=== PATIENT | female | born 1940 | race Caucasian/White ===

== ENCOUNTER 2016-07-06 01:45 | Emergency (ER) | payer MEDICARE, BC ==
[2016-07-06] MEDS ORDERED: SODIUM CHLORIDE 0.9% 1,000 ML IV STA (02:03)
[2016-07-06] MEDS ORDERED: SODIUM CHLORIDE 0.9% 500 ML IV STA (02:03)
[2016-07-06 02:04] VITALS: TEMP 98
[2016-07-06] MEDS ORDERED: KETOROLAC 30 MG/ML 1 ML VIAL IVP STA (02:04)
--- NOTE | 2016-07-06 02:10 | ED ---
Lower Extremity Injury HPI - General Chief Complaint: Extremity Injury, Lower Stated Complaint: L KNEE PAIN Time Seen by Provider: 07/06/16 01:45 Source: patient, family, EMS, RN notes reviewed Mode of arrival: EMS Limitations: no limitations - History of Present Illness Initial Comments: This is a 76-year-old female with a history of Alzheimer's disease who is brought in because of severe left knee pain. She has been evaluated and was told that she needs a knee replacement a left was told it was [id number]. She is in the process again cleared for surgery. She has had however some urinary frequency also has had some nausea decrease oral intake. She is taking pain medication but apparently did not help tonight. She is scheduled to see her physician again for the remainder the preop evaluation. His been no reports of fevers chills or sweats cough or phlegm production. Of note she was noted on her last exam however to have a low heart rate and they were in the process getting the etiology worked out. The patient is on beta blockers. MD Complaint: other - Related Data Previous Rx's Medication Instructions Recorded Ibuprofen [Motrin] 600 mg PO Q6HR PRN #20 tab 07/06/16 Allergies Allergy/AdvReac Type Severity Reaction Status Date / Time No Known Allergies Allergy Verified 09/07/14 20:05 Review of Systems ROS Statement: Those systems with pertinent positive or pertinent negative responses have been documented in the HPI. ROS Other: All systems not noted in ROS Statement are negative. Past Medical History Past Medical History: Hypertension Additional Past Medical History / Comment(s): memory problems History of Any Multi-Drug Resistant Organisms: None Reported Past Surgical History: Cholecystectomy, Hysterectomy Additional Past Surgical History / Comment(s): lumpectomy, Left knee surgery Past Psychological History: No Psychological Hx Reported Smoking Status: Never smoker Past Alcohol Use History: None Reported Past Drug Use History: None Reported General Exam - General Exam Comments Initial Comments: This is a well-developed well-nourished awake alert female Limitations: no limitations General appearance: alert, in no apparent distress Head exam: Present: atraumatic, normocephalic, normal inspection Eye exam: Present: normal appearance, PERRL, EOMI. Absent: scleral icterus, conjunctival injection, periorbital swelling ENT exam: Present: mucous membranes dry Neck exam: Present: normal inspection. Absent: tenderness, meningismus, lymphadenopathy Respiratory exam: Present: normal lung sounds bilaterally. Absent: respiratory distress, wheezes, rales, rhonchi, stridor Cardiovascular Exam: Present: normal rhythm, bradycardia, normal heart sounds. Absent: systolic murmur, diastolic murmur, rubs, gallop, clicks GI/Abdominal exam: Present: soft, normal bowel sounds. Absent: distended, tenderness, guarding, rebound, rigid Extremities exam: Present: normal inspection, tenderness, normal capillary refill. Absent: full ROM (Tenderness over the left. Palpation no definite step -off or crepitation however.), pedal edema, joint swelling, calf tenderness Back exam: Present: normal inspection Neurological exam: Present: alert, oriented X3, CN II-XII intact Psychiatric exam: Present: normal affect, normal mood Skin exam: Present: warm, dry, intact, normal color. Absent: rash Course Vital Signs 07/06/16 07/06/16 02:00 03:05 Temperature 98.0 F Pulse Rate 44 L 96 Respiratory 18 20 Rate Blood Pressure 152/73 126/67 O2 Sat by Pulse 96 98 Oximetry Medical Decision Making - Medical Decision Making Patient is feeling much improved she'll be discharged to did discuss findings the patient family. She will follow-up with Dr. Hutchinson return when necessary she will be placed on a short course of nonsteroidal anti-inflammatories was warned of possible consequences and side effects. - Lab Data Result diagrams: 07/06/16 02:39 07/06/16 02:39 Lab Results 07/05/16 07/06/16 07/06/16 Range/Units 23:50 02:39 02:39 WBC 4.8 (3.8-10.6) k/uL RBC 4.34 (3.80-5.40) m/uL Hgb 13.1 (11.4-16.0) gm/dL Hct 38.7 (34.0-46.0) % MCV 89.2 (80.0-100.0) fL MCH 30.2 (25.0-35.0) pg MCHC 33.9 (31.0-37.0) g/dL RDW 12.9 (11.5-15.5) % Plt Count 207 (150-450) k/uL Neutrophils % 52 % Lymphocytes % 32 % Monocytes % 9 % Eosinophils % 4 % Basophils % 1 % Neutrophils # 2.5 (1.3-7.7) k/uL Lymphocytes # 1.5 (1.0-4.8) k/uL Monocytes # 0.4 (0-1.0) k/uL Eosinophils # 0.2 (0-0.7) k/uL Basophils # 0.1 (0-0.2) k/uL Sodium 139 (137-145) mmol/L Potassium 3.7 (3.5-5.1) mmol/L Chloride 104 (98-107) mmol/L Carbon Dioxide 24 (22-30) mmol/L Anion Gap 11 mmol/L BUN 13 (7-17) mg/dL Creatinine 1.50 H (0.52-1.04) mg/dL Est GFR (MDRD) Af Amer 41 (>60 ml/min/1.73 sqM) Est GFR (MDRD) Non-Af 34 (>60 ml/min/1.73 sqM) Glucose 91 (74-99) mg/dL Calcium 10.0 (8.4-10.2) mg/dL Magnesium 1.7 (1.6-2.3) mg/dL Total Bilirubin 0.8 (0.2-1.3) mg/dL AST 25 (14-36) U/L ALT 32 (9-52) U/L Alkaline Phosphatase 46 (38-126) U/L Total Creatine Kinase (30-135) U/L CK-MB (CK-2) (0.0-2.4) ng/mL CK-MB (CK-2) Rel Index Troponin I (0.000-0.034) ng/mL Total Protein 6.7 (6.3-8.2) g/dL Albumin 4.2 (3.5-5.0) g/dL TSH 4.580 (0.465-4.680) mIU/L Urine Color Light Yellow Urine Appearance Clear (Clear) Urine pH 7.0 (5.0-8.0) Ur Specific [place] 1.002 (1.001-1.035) Urine Protein Negative (Negative) Urine Glucose (UA) Negative (Negative) Urine Ketones Negative (Negative) Urine Blood Negative (Negative) Urine Nitrite Negative (Negative) Urine Bilirubin Negative (Negative) Urine Urobilinogen <2.0 (<2.0) mg/dL Ur Leukocyte Esterase Trace H (Negative) Urine RBC <1 (0-5) /hpf Urine WBC 2 (0-5) /hpf Ur Squamous Epith Cells <1 (0-4) /hpf Urine Bacteria Rare H (None) /hpf Urine Mucus Rare H (None) /hpf 07/06/16 Range/Units 02:39 WBC (3.8-10.6) k/uL RBC (3.80-5.40) m/uL Hgb (11.4-16.0) gm/dL Hct (34.0-46.0) % MCV (80.0-100.0) fL MCH (25.0-35.0) pg MCHC (31.0-37.0) g/dL RDW (11.5-15.5) % Plt Count (150-450) k/uL Neutrophils % % Lymphocytes % % Monocytes % % Eosinophils % % Basophils % % Neutrophils # (1.3-7.7) k/uL Lymphocytes # (1.0-4.8) k/uL Monocytes # (0-1.0) k/uL Eosinophils # (0-0.7) k/uL Basophils # (0-0.2) k/uL Sodium (137-145) mmol/L Potassium (3.5-5.1) mmol/L Chloride (98-107) mmol/L Carbon Dioxide (22-30) mmol/L Anion Gap mmol/L BUN (7-17) mg/dL Creatinine (0.52-1.04) mg/dL Est GFR (MDRD) Af Amer (>60 ml/min/1.73 sqM) Est GFR (MDRD) Non-Af (>60 ml/min/1.73 sqM) Glucose (74-99) mg/dL Calcium (8.4-10.2) mg/dL Magnesium (1.6-2.3) mg/dL Total Bilirubin (0.2-1.3) mg/dL AST (14-36) U/L ALT (9-52) U/L Alkaline Phosphatase (38-126) U/L Total Creatine Kinase 60 (30-135) U/L CK-MB (CK-2) 0.6 (0.0-2.4) ng/mL CK-MB (CK-2) Rel Index 1.0 Troponin I <0.012 (0.000-0.034) ng/mL Total Protein (6.3-8.2) g/dL Albumin (3.5-5.0) g/dL TSH (0.465-4.680) mIU/L Urine Color Urine Appearance (Clear) Urine pH (5.0-8.0) Ur Specific [place] (1.001-1.035) Urine Protein (Negative) Urine Glucose (UA) (Negative) Urine Ketones (Negative) Urine Blood (Negative) Urine Nitrite (Negative) Urine Bilirubin (Negative) Urine Urobilinogen (<2.0) mg/dL Ur Leukocyte Esterase (Negative) Urine RBC (0-5) /hpf Urine WBC (0-5) /hpf Ur Squamous Epith Cells (0-4) /hpf Urine Bacteria (None) /hpf Urine Mucus (None) /hpf - EKG Data -: EKG Interpreted by Me (Sinus bradycardia with a rate of [address] interval 192 QRS duration 80 QT/QT) EKG shows normal: sinus rhythm - Radiology Data Radiology results: report reviewed (I did review the x-rays and report no acute findings), image reviewed Disposition Clinical Impression: Left knee pain Disposition: HOME SELF-CARE Condition: Good Instructions: Knee Pain (ED) Prescriptions: Ibuprofen [Motrin] 600 mg PO Q6HR PRN #20 tab PRN Reason: Pain
[2016-07-06 02:54] LABS: Basophils # (A) 0.1 k/uL (0-0.2); Basophils % (A) 1 %; CH 30.5; CHCM 34.3; Eosinophils # (A) 0.2 k/uL (0-0.7); Eosinophils % (A) 4 %; HCT 38.7 % (34.0-46.0); HDW 2.34; HGB 13.1 gm/dL (11.4-16.0); Luc # (Auto) 0.12; Luc % (Auto) 3; Lymphocytes # (A) 1.5 k/uL (1.0-4.8); Lymphocytes % (A) 32 %; MCH 30.2 pg (25.0-35.0); MCHC 33.9 g/dL (31.0-37.0); MCV 89.2 fL (80.0-100.0); Mean Platelet Volume 6.6; Monocytes # (A) 0.4 k/uL (0-1.0); Monocytes % (A) 9 %; Neutrophils # (A) 2.5 k/uL (1.3-7.7); Neutrophils % (A) 52 %; RBC 4.34 m/uL (3.80-5.40); RDW 12.9 % (11.5-15.5); WBC 4.8 k/uL (3.8-10.6); WBC (Perox) 5.17
[2016-07-06 02:58] LABS: Appearance,Urine Clear (Clear); Bacteria,Urine Rare /hpf; Bilirubin,Urine Negative (Negative); Glucose,Urine (UA) Negative (Negative); Ketones,Urine Negative (Negative); Leukocyte Esterase,Urine Trace (Negative); Mucus,Urine Rare /hpf; Nitrite,Urine Negative (Negative); Particle Count 675; Protein,Urine Negative (Negative); RBC,Urine <1 /hpf (0-5); Specific Gravity,Urine 1.002 (1.001-1.035); Squamous Epithelial Cell,Urine <1 /hpf (0-4); UA Billing (MACRO vs. MICRO) MICRO; Urobilinogen,Urine <2.0 mg/dL (<2.0); WBC,Urine 2 /hpf (0-5)
[2016-07-06 03:00] LABS: Magnesium 1.7 mg/dL (1.6-2.3); Potassium 3.7 mmol/L (3.5-5.1); Total Bilirubin 0.8 mg/dL (0.2-1.3); Total Protein 6.7 g/dL (6.3-8.2)
[2016-07-06 03:13] LABS: Creatine Kinase 60 U/L (30-135)
[2016-07-06 03:26] LABS: Creatine Kinase MB 0.6 ng/mL (0.0-2.4); Troponin I <0.012 ng/mL (0.000-0.034)
--- NOTE | 2016-07-06 03:45 | XR ---
EXAM: XR Chest, 2 Views. CLINICAL HISTORY: Reason: cough TECHNIQUE: Frontal and lateral views of the chest. COMPARISON: No relevant prior studies available. FINDINGS: Lungs: There is slight increased left infrahilar/retrocardiac opacity. This demonstrates slight linear opacity and may represent atelectasis or chronic bronchitis. Follow-up recommended to exclude developing infiltrate. No effusion. Pleural space: Unremarkable. No pneumothorax. Heart: Cardiovascular silhouette is within normal limits. Mediastinum: Unremarkable. Bones/joints: Unremarkable. Vasculature: Mildly tortuous thoracic aorta. IMPRESSION: 1. Possible atelectasis/bronchitis in the left lower lobe. Follow-up recommended to exclude early infiltrate. 2. No effusion.
[2016-07-06 03:54] VITALS: BP 160/87; PULSE 44; RESP 18
== END 2016-07-06 03:53 | disposition home or self-care (01) ==
LOC: EC 01:45
DX: M25.562 Pain in left knee (principal); R35.0 Frequency of micturition; R11.0 Nausea; I10 Essential (primary) hypertension; Z79.899 Other long term (current) drug therapy
CPT/HCPCS: 99284; 96374; 36415; 93005; 80053; 84443; 82550; 82553; 83735; 84484; 85025; 81001; 71020; J1885

== ENCOUNTER 2016-07-09 07:17 | Observation (INO) | payer MEDICARE, BC ==
[2016-07-09] MEDS ORDERED: SODIUM CHLORIDE 0.9% 1,000 ML IV STA (07:32)
[2016-07-09] MEDS ORDERED: SODIUM CHLORIDE 0.9% 2,000 ML IV STA (07:32)
[2016-07-09] MEDS ORDERED: FAMOTIDINE 20 MG/2 ML VIAL IV STA (07:34)
--- NOTE | 2016-07-09 07:40 | ED ---
Headache HPI - General Chief Complaint: Headache Stated Complaint: headache Time Seen by Provider: 07/09/16 07:28 Source: patient, family, RN notes reviewed, old records reviewed Mode of arrival: wheelchair Limitations: altered mental status, physical limitation - History of Present Illness Initial Comments: This is a 76-year-old female who is brought in for evaluation of a severe headache and vomiting. She was seen here on the of this month by me because of knee pain she was at that time given nonsteroidal anti- inflammatories which did seem to help the pain he was sent home but per family after she took a single Motrin 600 mg she started developing nausea and vomiting and it has persisted every 2-3 hours since 3 days ago. She now complains of feeling lightheaded dizzy weak and has a global headache that she describes as being sharp and severe. No focal weakness no blurry vision is reported no fevers chills sweats or cough. She does feel chilled at this time however. She was instructed by a pharmacist to take Benadryl for possible ALLERGIC reaction this did not help his symptoms. She's had no diarrhea no constipation to report. Due to the vomiting she's not been able to keep her medications down and has had decreased oral intake of food and fluid. Per family the emesis has been dark green no blood is reported no red or black material MD Complaint: headache, other - Related Data Home Medications Medication Instructions Recorded Confirmed Amitriptyline HCl [Elavil] 10 mg PO HS 07/09/16 07/09/16 Aspirin EC [Ecotrin Low Dose] 81 mg PO DAILY 07/09/16 07/09/16 Cholecalciferol [Vitamin D3] 1,000 unit PO DAILY 07/09/16 07/09/16 Donepezil HCl [Aricept ODT] 5 mg PO HS 07/09/16 07/09/16 Fenofibrate [Lofibra] 54 mg PO DAILY 07/09/16 07/09/16 HYDROcodone/APAP 5-325MG [[place] 1 tab PO Q8H PRN 07/09/16 07/09/16 5-325] Isosorbide Mononitrate ER [Imdur] 30 mg PO DAILY 07/09/16 07/09/16 Lidocaine 5% Oint [Xylocaine 5% 1 applic TOPICAL TID PRN 07/09/16 07/09/16 Oint] Naproxen Sodium [Aleve] 220 - 440 mg PO Q6H PRN 07/09/16 07/09/16 Nitroglycerin Sl Tabs [Nitrostat] 0.4 mg SUBLINGUAL Q5M PRN 07/09/16 07/09/16 Olmesartan/Hydrochlorothiazide 1 tab PO DAILY 07/09/16 07/09/16 [Olmesartan-Hctz 40-25 mg Tab] Simethicone [Gas-X] 125 mg PO Q8H PRN 07/09/16 07/09/16 traMADol HCL [Ultram] 50 mg PO DAILY PRN 07/09/16 07/09/16 Allergies Allergy/AdvReac Type Severity Reaction Status Date / Time No Known Allergies Allergy Verified 07/09/16 08:32 Review of Systems ROS Statement: Those systems with pertinent positive or pertinent negative responses have been documented in the HPI. ROS Other: All systems not noted in ROS Statement are negative. Past Medical History Past Medical History: Hypertension Additional Past Medical History / Comment(s): memory problems History of Any Multi-Drug Resistant Organisms: None Reported Past Surgical History: Cholecystectomy, Hysterectomy Additional Past Surgical History / Comment(s): lumpectomy, Left knee surgery Past Psychological History: No Psychological Hx Reported Smoking Status: Never smoker Past Alcohol Use History: None Reported Past Drug Use History: None Reported General Exam - General Exam Comments Initial Comments: This is a well-developed well-nourished awake alert oriented female she is very anxious Limitations: altered mental status, physical limitation General appearance: alert, anxious, in distress (Patient is tearful) Head exam: Present: atraumatic, normocephalic, normal inspection Eye exam: Present: normal appearance, PERRL, EOMI. Absent: scleral icterus, conjunctival injection, periorbital swelling ENT exam: Present: mucous membranes dry Neck exam: Present: normal inspection, full ROM. Absent: tenderness, meningismus, lymphadenopathy Respiratory exam: Present: normal lung sounds bilaterally. Absent: respiratory distress, wheezes, rales, rhonchi, stridor Cardiovascular Exam: Present: regular rate, normal rhythm, normal heart sounds. Absent: systolic murmur, diastolic murmur, rubs, gallop, clicks GI/Abdominal exam: Present: soft, tenderness (Epigastric tenderness palpation no guarding rebound masses or bruits), normal bowel sounds. Absent: bruit, pulsatile mass, hernia Rectal exam: Present: deferred Extremities exam: Present: normal inspection, full ROM, normal capillary refill. Absent: tenderness, pedal edema, joint swelling, calf tenderness Back exam: Present: normal inspection Neurological exam: Present: alert, oriented X3, CN II-XII intact Psychiatric exam: Present: normal affect, normal mood Skin exam: Present: warm, dry, intact, normal color. Absent: rash Course Vital Signs 07/09/16 07/09/16 07/09/16 07:20 07:56 08:42 Temperature 96.3 F L 99.1 F Pulse Rate 85 53 L 52 L Respiratory 20 18 18 Rate Blood Pressure 156/77 140/76 O2 Sat by Pulse 98 98 Oximetry 07/09/16 07/09/16 07/09/16 09:01 10:13 10:58 Temperature 98 F Pulse Rate 52 L 48 L 48 L Respiratory 18 18 18 Rate Blood Pressure 138/93 145/67 O2 Sat by Pulse 99 95 Oximetry Medical Decision Making - Medical Decision Making The patient states she is feeling somewhat better I did a long discussion with the patient later with her daughter. Patient does have a history of Alzheimer' s disease. She has been tearful she's not been eating or drinking very well for a recent period of time she did recently move to this area is not happy where she is staying right now she has voiced to her daughter that she wishes she would . After discussed with the family patient will be admitted for inpatient evaluation of bradycardia failure to thrive intractable nausea dehydration. I did discuss the case with the on-call physician. Cardiology and psychiatry will be consulted. - Lab Data Result diagrams: 07/09/16 07:42 07/09/16 07:42 Lab Results 07/09/16 07/09/16 07/09/16 Range/Units 07:42 07:42 07:42 WBC 5.4 (3.8-10.6) k/uL RBC 4.11 (3.80-5.40) m/uL Hgb 12.7 (11.4-16.0) gm/dL Hct 36.4 (34.0-46.0) % MCV 88.6 (80.0-100.0) fL MCH 31.0 (25.0-35.0) pg MCHC 35.0 (31.0-37.0) g/dL RDW 12.9 (11.5-15.5) % Plt Count 215 (150-450) k/uL Neutrophils % 67 % Lymphocytes % 20 % Monocytes % 7 % Eosinophils % 3 % Basophils % 1 % Neutrophils # 3.6 (1.3-7.7) k/uL Lymphocytes # 1.1 (1.0-4.8) k/uL Monocytes # 0.4 (0-1.0) k/uL Eosinophils # 0.2 (0-0.7) k/uL Basophils # 0.1 (0-0.2) k/uL Sodium 135 L (137-145) mmol/L Potassium 4.0 (3.5-5.1) mmol/L Chloride 100 (98-107) mmol/L Carbon Dioxide 25 (22-30) mmol/L Anion Gap 10 mmol/L BUN 16 (7-17) mg/dL Creatinine 1.59 H (0.52-1.04) mg/dL Est GFR (MDRD) Af Amer 38 (>60 ml/min/1.73 sqM) Est GFR (MDRD) Non-Af 31 (>60 ml/min/1.73 sqM) Glucose 107 H (74-99) mg/dL Plasma Lactic Acid Shar (0.7-2.0) mmol/L Calcium 10.0 (8.4-10.2) mg/dL Total Bilirubin 1.0 (0.2-1.3) mg/dL AST 32 (14-36) U/L ALT 35 (9-52) U/L Alkaline Phosphatase 44 (38-126) U/L Total Creatine Kinase 75 (30-135) U/L CK-MB (CK-2) 0.8 (0.0-2.4) ng/mL CK-MB (CK-2) Rel Index 1.1 Troponin I 0.016 (0.000-0.034) ng/mL Total Protein 7.0 (6.3-8.2) g/dL Albumin 4.3 (3.5-5.0) g/dL Amylase 62 (30-110) U/L Lipase 113 (23-300) U/L Urine Color Urine Appearance (Clear) Urine pH (5.0-8.0) Ur Specific [place] (1.001-1.035) Urine Protein (Negative) Urine Glucose (UA) (Negative) Urine Ketones (Negative) Urine Blood (Negative) Urine Nitrite (Negative) Urine Bilirubin (Negative) Urine Urobilinogen (<2.0) mg/dL Ur Leukocyte Esterase (Negative) 07/09/16 07/09/16 Range/Units 07:42 09:00 WBC (3.8-10.6) k/uL RBC (3.80-5.40) m/uL Hgb (11.4-16.0) gm/dL Hct (34.0-46.0) % MCV (80.0-100.0) fL MCH (25.0-35.0) pg MCHC (31.0-37.0) g/dL RDW (11.5-15.5) % Plt Count (150-450) k/uL Neutrophils % % Lymphocytes % % Monocytes % % Eosinophils % % Basophils % % Neutrophils # (1.3-7.7) k/uL Lymphocytes # (1.0-4.8) k/uL Monocytes # (0-1.0) k/uL Eosinophils # (0-0.7) k/uL Basophils # (0-0.2) k/uL Sodium (137-145) mmol/L Potassium (3.5-5.1) mmol/L Chloride (98-107) mmol/L Carbon Dioxide (22-30) mmol/L Anion Gap mmol/L BUN (7-17) mg/dL Creatinine (0.52-1.04) mg/dL Est GFR (MDRD) Af Amer (>60 ml/min/1.73 sqM) Est GFR (MDRD) Non-Af (>60 ml/min/1.73 sqM) Glucose (74-99) mg/dL Plasma Lactic Acid Shar 1.3 (0.7-2.0) mmol/L Calcium (8.4-10.2) mg/dL Total Bilirubin (0.2-1.3) mg/dL AST (14-36) U/L ALT (9-52) U/L Alkaline Phosphatase (38-126) U/L Total Creatine Kinase (30-135) U/L CK-MB (CK-2) (0.0-2.4) ng/mL CK-MB (CK-2) Rel Index Troponin I (0.000-0.034) ng/mL Total Protein (6.3-8.2) g/dL Albumin (3.5-5.0) g/dL Amylase (30-110) U/L Lipase (23-300) U/L Urine Color Light Yellow Urine Appearance Clear (Clear) Urine pH 7.5 (5.0-8.0) Ur Specific [place] 1.005 (1.001-1.035) Urine Protein Negative (Negative) Urine Glucose (UA) Negative (Negative) Urine Ketones Negative (Negative) Urine Blood Negative (Negative) Urine Nitrite Negative (Negative) Urine Bilirubin Negative (Negative) Urine Urobilinogen <2.0 (<2.0) mg/dL Ur Leukocyte Esterase Negative (Negative) - EKG Data -: EKG Interpreted by Me EKG shows normal: sinus rhythm (Sinus bradycardia rate of 49. Interval 198 QRS duration 76 QT/QTC of 90/[address]-T wave changes.) - Radiology Data Radiology results: report reviewed (I did review the imaging and reports no acute findings.), image reviewed Disposition Clinical Impression: Headache, Dehydration, Bradycardia, Failure to thrive, Dementia Disposition: ADMITTED IP TO THIS [facility] Condition: Stable Decision Time: 10:40
[2016-07-09] MEDS: HYDROmorphone 1 MG/ML 1 ML SYRINGE IVP STA ×2 (07:46→08:40)
[2016-07-09] MEDS: ONDANSETRON 4 MG/2 ML VIAL IVP STA ×2 (07:47→08:39)
[2016-07-09 07:58] LABS: Basophils # (A) 0.1 k/uL (0-0.2); Basophils % (A) 1 %; CH 30.5; CHCM 34.5; Eosinophils # (A) 0.2 k/uL (0-0.7); Eosinophils % (A) 3 %; HCT 36.4 % (34.0-46.0); HDW 2.38; HGB 12.7 gm/dL (11.4-16.0); Luc # (Auto) 0.14; Luc % (Auto) 3; Lymphocytes # (A) 1.1 k/uL (1.0-4.8); Lymphocytes % (A) 20 %; MCV 88.6 fL (80.0-100.0); Mean Platelet Volume 6.8; Monocytes # (A) 0.4 k/uL (0-1.0); Monocytes % (A) 7 %; Neutrophils # (A) 3.6 k/uL (1.3-7.7); Neutrophils % (A) 67 %; RBC 4.11 m/uL (3.80-5.40); RDW 12.9 % (11.5-15.5); WBC 5.4 k/uL (3.8-10.6); WBC (Perox) 5.76
[2016-07-09 08:32] LABS: Creatine Kinase MB 0.8 ng/mL (0.0-2.4); Troponin I 0.016 ng/mL (0.000-0.034)
--- NOTE | 2016-07-09 08:36 | XR ---
EXAMINATION TYPE: XR chest 2V DATE OF EXAM: 07/09/2016 8:28 AM COMPARISON: Chest x-ray from 3 days earlier HISTORY: Headache and pain. TECHNIQUE: Frontal and lateral views of the chest are obtained. FINDINGS: Diminished inspiration is seen on current study. There is chronic parenchymal change withou t suspicious focal air space opacity, pleural effusion, or pneumothorax seen. The cardiac silhouette size is within normal limits with atherosclerotic change in aortic knob. The osseous structures ar e intact. Cholecystectomy clips are noted. IMPRESSION: No acute cardiopulmonary process currently.
--- NOTE | 2016-07-09 08:37 | XR ---
EXAMINATION TYPE: XR KUB DATE OF EXAM: 07/09/2016 8:28 AM CLINICAL HISTORY: Generalized abdominal pain today. TECHNIQUE: Supine and upright views of the abdomen are obtained. COMPARISON: None. FINDINGS: Scattered gas is seen in non-distended small bowel loops. Gas and fecal material is seen in non-distended colon. Cholecystectomy clips are present. There are pelvic phleboliths seen. No pneu moperitoneum is present. Vascular calcification lower aorta is seen. Lung bases are clear. IMPRESSION: Overall nonobstructive bowel gas pattern.
--- NOTE | 2016-07-09 08:44 | CT ---
EXAMINATION TYPE: CT brain wo con DATE OF EXAM: 07/09/2016 8:19 AM HISTORY: Patient complains of severe headache today. CT DLP: 788.8 mGycm. Automated Exposure Control for Dose Reduction was Utilized. TECHNIQUE: CT scan of the head is performed without contrast. COMPARISON: CT brain September 07, 2014. FINDINGS: There is no acute intracranial hemorrhage or midline shift identified. There is diffuse v entricular and sulcal prominence consistent with diffuse age-related cerebral atrophy. The globes ar e intact and the visualized sinuses are clear. IMPRESSION: No acute intracranial hemorrhage or midline shift. There is mild to moderate diffuse ag e-related cerebral atrophy redemonstrated without significant interval change
[2016-07-09 09:09] LABS: Appearance,Urine Clear (Clear); Bilirubin,Urine Negative (Negative); Glucose,Urine (UA) Negative (Negative); Ketones,Urine Negative (Negative); Leukocyte Esterase,Urine Negative (Negative); Nitrite,Urine Negative (Negative); PH, Urine 7.5 (5.0-8.0); Protein,Urine Negative (Negative); Specific Gravity,Urine 1.005 (1.001-1.035); UA Billing (MACRO vs. MICRO) CHEM; Urobilinogen,Urine <2.0 mg/dL (<2.0)
[2016-07-09] MEDS ORDERED: NALOXONE 0.4 MG/ML 1 ML VIAL IV PRN (11:06)
[2016-07-09] MEDS ORDERED: NITROGLYCERIN SL TABS 0.4 MG TAB SUBLINGUAL PRN (11:12)
[2016-07-09] MEDS ORDERED: traMADol 50 MG TAB PO PRN (11:12)
[2016-07-09] MEDS ORDERED: LIDOCAINE 4% CREAM 5 GM TUBE TOPICAL PRN (11:12)
[2016-07-09] MEDS: HYDROmorphone 1 MG/ML 1 ML SYRINGE IVP PRN (16:44)
[2016-07-09] MEDS ORDERED: TRIMETHOBENZAMIDE 100 MG/ML 2 ML VIAL IM PRN (17:07)
--- NOTE | 2016-07-09 18:38 | CT ---
EXAMINATION TYPE: CT abdomen pelvis wo con DATE OF EXAM: 07/09/2016 6:19 PM HISTORY: Abdominal pain not further specified. CT DLP: 649.4 mGycm. Automated Exposure Control for Dose Reduction was Utilized. TECHNIQUE: CT scan of the abdomen and pelvis is performed without oral or IV contrast. COMPARISON: NONE FINDINGS: Within the limitations of a non-contrast study, the following observations are made. LUNG BASES: Patchy dependent atelectasis and/or infiltrate is seen bilaterally. LIVER/GB: Cholecystectomy clips are noted. PANCREAS: No significant abnormality is seen. SPLEEN: No significant abnormality is seen. ADRENALS: No significant abnormality is seen. KIDNEYS: No renal stones or hydronephrosis is present bilaterally. There are pelvic phleboliths seen. No intraluminal calculus in the bladder is noted. BOWEL: Evaluation bowel is slightly suboptimal secondary to lack of enteric contrast. There is no winter picious small or large bowel dilatation seen. GENITAL ORGANS: Uterus is surgically absent or markedly atrophic in appearance. LYMPH NODES: No greater than 1cm abdominal or pelvic lymph nodes are appreciated. OSSEOUS STRUCTURES: There is disc space narrowing L3-L4 and L4-L5 levels. There is multilevel spurrin g in the visualized thoracic spine. There is facet arthropathy mid to lower lumbar levels. OTHER: There is mild to moderate calcified atherosclerotic change of the abdominal aorta extending to pelvic branch vessels. Scattered pelvic phleboliths are seen. IMPRESSION: No significant acute finding is seen on noncontrast study
[2016-07-09] MEDS ORDERED: ONDANSETRON 4 MG/2 ML VIAL IVP PRN (19:04)
[2016-07-09] MEDS: DONEPEZIL 5 MG TAB PO SCH (20:48)
[2016-07-09] MEDS ORDERED: LORazepam 2 MG/ML SYRINGE IV PRN (20:59)
[2016-07-09] MEDS ORDERED: AMITRIPTYLINE HCL 10 MG TAB PO SCH (21:00)
[2016-07-09] MEDS ORDERED: FAMOTIDINE 20 MG TAB PO SCH (21:00)
--- NOTE | 2016-07-09 21:48 | HP ---
DATE OF ADMISSION: 07/09/2016 CHIEF COMPLAINT: A 76-year-old white female with severe headache and vomiting. HISTORY OF PRESENT ILLNESS: This 76-year-old white female was admitted to the hospital with severe headache and vomiting. She was seen here for knee pain like three days ago. She was treated with nonsteroidals and ( ) nausea vomiting. She came in. She was feeling lightheaded, weak, global headache, sharp, and severe. No focal weakness, blurred vision. No fever, chills. She was given Benadryl for allergic reaction. ( ) was negative. No diarrhea or constipation. No dark emesis or black fecal material. MEDICATIONS INCLUDE: 1. Elavil 10 mg q.h.s. 2. Aspirin 81 mg daily. 3. Vitamin D3. 4. Aricept. 5. Fenofibrate. 6. [place]. 7. Imdur. 8. Lidocaine 5% ointment. 9. Aleve. 10. ( ). 11. Hydrochlorothiazide. 12. Tramadol. ALLERGIES: Negative. REVIEW OF SYSTEMS: Fourteen-point review of systems negative. PHYSICAL EXAM: Well-developed, well-nourished white female appearing anxious, altered mental status. CARDIOVASCULAR: S1, S2. LUNGS: Clear. GI: Soft. HEMATOLOGIC: Epigastric tenderness to palpation. No rebound. Has some bruits. EXTREMITIES: Range of motion is full. No pedal edema. BACK: Normal inspection. NEUROLOGIC: Alert and oriented x2. PSYCH: Fair mood and affect, appears anxious. SKIN: Warm, dry, intact. Temperature 96.3, pulse is 50s to 80s, respiratory rate 18 to 20, and blood pressure 140s to 150s over 70s. O2 is 98% on room air. Sodium 135, potassium 4.0, BUN 16, creatinine 1.59. EKG sinus rhythm. ASSESSMENT: 1. Acute headache, nausea, vomiting, dehydration. 2. Bradycardia. 3. Failure to thrive. 4. Dementia. Check thyroid fluid. Rehydration. Continue current treatment. Please see further orders. Cardiology will be seeing the patient for bradycardia and possible UTIs. She continues to have nausea, vomiting, possibly neuro.
[2016-07-09 22:02] LABS: Hemoglobin A1C 5.8 % (4.2-6.1)
[2016-07-09] MEDS ORDERED: HYDROCHLOROTHIAZIDE 25 MG TAB PO STA (23:43)
[2016-07-09] MEDS ORDERED: LOSARTAN 50 MG TAB PO STA (23:43)
[2016-07-09] MEDS ORDERED: ISOSORBIDE MONONITRATE ER 30 MG TAB.ER.24H PO STA (23:44)
[2016-07-10] MEDS: SODIUM CHLORIDE 0.9% 1,000 ML IV SCH ×3 (00:15→13:28)
[2016-07-10] MEDS: HYDROmorphone 1 MG/ML 1 ML SYRINGE IVP PRN ×2 (04:22→16:42)
[2016-07-10 06:37] LABS: Basophils # (A) 0.1 k/uL (0-0.2); Basophils % (A) 1 %; CH 29.6; CHCM 32.3; Eosinophils # (A) 0.1 k/uL (0-0.7); Eosinophils % (A) 3 %; HCT 35.6 % (34.0-46.0); HDW 2.25; HGB 11.9 gm/dL (11.4-16.0); Luc # (Auto) 0.15; Luc % (Auto) 3; Lymphocytes # (A) 1.2 k/uL (1.0-4.8); Lymphocytes % (A) 22 %; MCH 30.7 pg (25.0-35.0); MCHC 33.3 g/dL (31.0-37.0); MCV 92.1 fL (80.0-100.0); Mean Platelet Volume 6.5; Monocytes # (A) 0.5 k/uL (0-1.0); Monocytes % (A) 8 %; Neutrophils # (A) 3.6 k/uL (1.3-7.7); Neutrophils % (A) 64 %; RBC 3.87 m/uL (3.80-5.40); RDW 13.1 % (11.5-15.5); WBC 5.6 k/uL (3.8-10.6); WBC (Perox) 6.09
[2016-07-10 06:51] LABS: Calcium 9.7 mg/dL (8.4-10.2); Total Protein 6.5 g/dL (6.3-8.2)
[2016-07-10] MEDS: ISOSORBIDE MONONITRATE ER 30 MG TAB.ER.24H PO SCH (08:39)
[2016-07-10] MEDS: ASPIRIN 81 MG CHEW PO SCH (08:39)
[2016-07-10] MEDS: FAMOTIDINE 20 MG TAB PO SCH (08:40)
[2016-07-10] MEDS ORDERED: LOSARTAN 50 MG TAB PO SCH (09:00)
[2016-07-10] MEDS ORDERED: HYDROCHLOROTHIAZIDE 25 MG TAB PO SCH (09:00)
[2016-07-10 09:26] VITALS: BMI 32.4
--- NOTE | 2016-07-10 09:47 | P.GSCN ---
History of Present Illness Consult date: 07/10/16 Reason for Consult: Emesis and abdominal pain Requesting physician: Steven Turner History of present illness: Patient is a 76-year-old female referred from Dr. Turner for emesis and abdominal pain. Patient has a history of Alzheimer's disease and most of information is taken from the chart and family at bedside. Daughter states that patient had problems with uncontrolled left knee pain and has been treated with hydrocodone and tramadol in the outpatient setting. Last , patient 's left knee pain became unbearable and she was evaluated in the emergency department where she was discharged home on ibuprofen. Daughter states that he shouldn't started experiencing nausea and vomiting after starting the ibuprofen. Daughter states that they brought patient in for reevaluation to the emergency department with complaints of severe headache and vomiting. Daughter states that patient has had decreased appetite for approximately one month. No history of diarrhea constipation. Daughter states that patient occasionally complains of epigastric abdominal pain. No history of hematochezia , melena, or hematemesis. Patient has never had an EGD or colonoscopy in the past. Daughter states that patient has had her gallbladder out but no other abdominal surgeries. KUB obtained through the x-ray with evidence of nonobstructive bowel gas pattern. CT of abdomen and pelvis with no significant acute findings. Admission labs with evidence of dehydration. Past Medical History Past Medical History: Dementia, Hyperlipidemia, Hypertension, Memory Impairment , Osteoarthritis (OA) Additional Past Medical History / Comment(s): Arthritis in bilateral hands/L knee pain-which is worse in the evening and thru the night-does not sleep well due to this, memory problems, stress incontinence-wears a pad, unsteady on her feet. History of Any Multi-Drug Resistant Organisms: None Reported Past Surgical History: Cholecystectomy, Heart Catheterization, Hysterectomy Additional Past Surgical History / Comment(s): Benign lumpectomy (laterality unknown), left knee arthroscopy, 1999 cardiac cath-normal, D&C. Past Anesthesia/Blood Transfusion Reactions: No Reported Reaction, Motion Sickness Past Psychological History: Anxiety, Depression Additional Psychological History / Comment(s): Pt has dementia. She also states she feels depressed at times about her health and how it impacts her family. Pt states she does not want to commit suicide or harm herself but has on occasion wished she would . Daughter at bedside, states family believes pt's dementia makes her think she is more depressed. Pt's spouse is not healthy. They live in an apartment. They have 3 daughters and 1 son. Family is very helpful. Kyra lives 5 minutes from their home and is with them daily and at night when needed. 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 She states when they are no longer able to live in their home, she or her sister will bring them to live with them. Smoking Status: Never smoker Past Alcohol Use History: None Reported Past Drug Use History: None Reported - Past Family History Father Family Medical History: Dementia Additional Family Medical History / Comment(s): Father was close to 90yrs old when he passed. Mother Family Medical History: Osteoarthritis (OA) Additional Family Medical History / Comment(s): Mother was close to 90 when she . Medications and Allergies Home Medications Medication Instructions Recorded Confirmed Type Amitriptyline HCl [Elavil] 10 mg PO HS 07/09/16 07/09/16 History Aspirin EC [Ecotrin Low Dose] 81 mg PO DAILY 07/09/16 07/09/16 History Cholecalciferol [Vitamin D3] 1,000 unit PO DAILY 07/09/16 07/09/16 History Donepezil HCl [Aricept ODT] 5 mg PO HS 07/09/16 07/09/16 History Fenofibrate [Lofibra] 54 mg PO DAILY 07/09/16 07/09/16 History HYDROcodone/APAP 5-325MG [[place] 1 tab PO Q8H PRN 07/09/16 07/09/16 History 5-325] Isosorbide Mononitrate ER [Imdur] 30 mg PO DAILY 07/09/16 07/09/16 History Lidocaine 5% Oint [Xylocaine 5% 1 applic TOPICAL TID PRN 07/09/16 07/09/16 History Oint] Naproxen Sodium [Aleve] 220 - 440 mg PO Q6H PRN 07/09/16 07/09/16 History Nitroglycerin Sl Tabs [Nitrostat] 0.4 mg SUBLINGUAL Q5M PRN 07/09/16 07/09/16 History Olmesartan/Hydrochlorothiazide 1 tab PO DAILY 07/09/16 07/09/16 History [Olmesartan-Hctz 40-25 mg Tab] Simethicone [Gas-X] 125 mg PO Q8H PRN 07/09/16 07/09/16 History traMADol HCL [Ultram] 50 mg PO DAILY PRN 07/09/16 07/09/16 History Allergies Allergy/AdvReac Type Severity Reaction Status Date / Time No Known Allergies Allergy Verified 07/09/16 08:32 Surgical - Exam Vital Signs Temp Pulse Resp Pulse Ox 96.3 F L 85 20 98 07/09/16 07:20 07/09/16 07:20 07/09/16 07:20 07/09/16 07:20 GENERAL: Pt awake and alert, well-nourished, and in no acute distress. HEAD: Atraumatic, normocephalic. EYES: Pupils equal and round. Sclera anicteric, conjunctiva are normal. ENT: Dry mucous membranes. LUNGS: Breath sounds clear to auscultation bilaterally. No wheezes, rales, or rhonchi. HEART: Heart S1, S2, no S3 or S4. No murmurs, rubs or gallops. ABDOMEN: Soft, nontender, nondistended, normoactive bowel sounds. No guarding, no rebound. No masses or organomegaly appreciated. EXTREMITIES: Palpable peripheral pulses. NEUROLOGICAL: Pt oriented to person and place. Disoriented to time. PSYCH: Normal mood, normal affect. SKIN: Warm, dry. Results - Labs 07/10/16 06:12 07/10/16 06:12 Abnormal Lab Results - Last 24 Hours (Table) 07/10/16 Range/Units 06:12 Chloride 109 H (98-107) mmol/L Carbon Dioxide 19 L (22-30) mmol/L Creatinine 1.35 H (0.52-1.04) mg/dL Diabetes panel 07/10/16 Range/Units 06:12 Sodium 138 (137-145) mmol/L Potassium 4.0 (3.5-5.1) mmol/L Chloride 109 H (98-107) mmol/L Carbon Dioxide 19 L (22-30) mmol/L BUN 10 (7-17) mg/dL Creatinine 1.35 H (0.52-1.04) mg/dL Glucose 99 (74-99) mg/dL Calcium 9.7 (8.4-10.2) mg/dL AST 27 (14-36) U/L ALT 33 (9-52) U/L Alkaline Phosphatase 41 (38-126) U/L Total Protein 6.5 (6.3-8.2) g/dL Albumin 3.9 (3.5-5.0) g/dL Calcium panel 07/10/16 Range/Units 06:12 Calcium 9.7 (8.4-10.2) mg/dL Albumin 3.9 (3.5-5.0) g/dL Pituitary panel 07/10/16 Range/Units 06:12 Sodium 138 (137-145) mmol/L Potassium 4.0 (3.5-5.1) mmol/L Chloride 109 H (98-107) mmol/L Carbon Dioxide 19 L (22-30) mmol/L BUN 10 (7-17) mg/dL Creatinine 1.35 H (0.52-1.04) mg/dL Glucose 99 (74-99) mg/dL Calcium 9.7 (8.4-10.2) mg/dL Adrenal panel 07/10/16 Range/Units 06:12 Sodium 138 (137-145) mmol/L Potassium 4.0 (3.5-5.1) mmol/L Chloride 109 H (98-107) mmol/L Carbon Dioxide 19 L (22-30) mmol/L BUN 10 (7-17) mg/dL Creatinine 1.35 H (0.52-1.04) mg/dL Glucose 99 (74-99) mg/dL Calcium 9.7 (8.4-10.2) mg/dL Total Bilirubin 1.0 (0.2-1.3) mg/dL AST 27 (14-36) U/L ALT 33 (9-52) U/L Alkaline Phosphatase 41 (38-126) U/L Total Protein 6.5 (6.3-8.2) g/dL Albumin 3.9 (3.5-5.0) g/dL - Imaging Abdominal x-ray: report reviewed CT scan - abdomen: report reviewed CT scan - pelvis: report reviewed Assessment and Plan Plan: Impression: 1. Nausea and vomiting, present on admission. 2. Acute renal failure, present on admission. Creatinine 1.59 improved to 1.35 this morning. 3. Obesity. BMI 32.4. 4. History of cholecystectomy. Plan: Patient will undergo EGD this morning. Patient will be kept nothing by mouth. Continue supportive treatment and pain management. Continue IV hydration. Continue GI prophylaxis. Continue to follow the medical team. The above impression and plan have been discussed and directed by Dr. Torres. Chente SMALLS acting as scribe for Dr. Torres.
[2016-07-10] MEDS ORDERED: PROPOFOL 10 MG/ML 20 ML VIAL IV ONE (09:48)
[2016-07-10] MEDS ORDERED: IV FLUID CONTINUATION 1,000 ML IV ONE (09:49)
--- NOTE | 2016-07-10 10:25 | P.OP ---
Date of Procedure: 07/10/16 Preoperative Diagnosis: Epigastric dull pain, nausea Postoperative Diagnosis: Antral gastritis Duodenitis Mild esophagitis No evidence of hiatal hernia Procedure(s) Performed: EGD Anesthesia: MAC Surgeon: Edy Torres Pathology: other (Duodenum, antrum, esophagus) Condition: stable Disposition: PACU Description of Procedure: The patient's placed on the endoscopy table in the lateral position. She received IV sedation. The gastroscope some placed oropharynx and passed into the esophagus and into the stomach. The scope was then placed through the pylorus. The first and second portion of duodenum was examined. There appeared to be inflammation of the duodenum this area is biopsied. The scope was then brought back and the pylorus and the antrum. To be inflamed. There was evidence of gastritis. This area is biopsied. Scope was unretroflexed and remainder stomach appeared normal. The GE junction was at 47 m. The distal esophagus was minimal inflamed a biopsy was performed. The proximal esophagus appeared normal. The scope was withdrawn for patient.
--- NOTE | 2016-07-10 11:45 | P.CRDCN ---
History of Present Illness Consult date: 07/10/16 Requesting physician: Steven Turner Reason for Consult (text): Bradycardia Chief complaint: Abdominal pain, vomiting, headache History of present illness: This is a pleasant 76-year-old female who presented to the hospital primarily with symptoms of abdominal pain and vomiting, associated headache. According to the patient, her problems initially started when she was experiencing severe knee pain in her left knee. She is scheduled for surgery within a month. The patient was initiated on Motrin 600 mg at home to alleviate some of her pain, immediately following that patient started developing nausea and vomiting, with associated headache. Patient also states that she has not been eating and drinking at home. Patient states that she became dizzy and lightheaded, felt extremely weak. For these reasons she came to the emergency room for further evaluation. Her initial EKG on presentation here showed a sinus bradycardia with a heart rate of 49. and for this reason cardiology consultation was requested. Patient underwent an EGD today which revealed antral gastritis, duodenitis, and mild esophagitis. No evidence of any hiatal hernia.Pressure this morning 116/80, heart rate in the 40s to 60s. Patient follows with an student union consultant out of town, Dr. Kuo, apparently the patient had a Holter study performed as an outpatient we will attempt to get this. She was not on any blood pressure medications which would significantly affect the heart rate at home, we will however discontinue the Benicar and add hydralazine to her medication regime. Past Medical History Past Medical History: Dementia, Hyperlipidemia, Hypertension, Memory Impairment , Osteoarthritis (OA) Additional Past Medical History / Comment(s): Arthritis in bilateral hands/L knee pain-which is worse in the evening and thru the night-does not sleep well due to this, memory problems, stress incontinence-wears a pad, unsteady on her feet. History of Any Multi-Drug Resistant Organisms: None Reported Past Surgical History: Cholecystectomy, Heart Catheterization, Hysterectomy Additional Past Surgical History / Comment(s): Benign lumpectomy (laterality unknown), left knee arthroscopy, 1999 cardiac cath-normal, D&C. Past Anesthesia/Blood Transfusion Reactions: No Reported Reaction, Motion Sickness Past Psychological History: Anxiety, Depression Additional Psychological History / Comment(s): Pt has dementia. She also states she feels depressed at times about her health and how it impacts her family. Pt states she does not want to commit suicide or harm herself but has on occasion wished she would . Daughter at bedside, states family believes pt's dementia makes her think she is more depressed. Pt's spouse is not healthy. They live in an apartment. They have 3 daughters and 1 son. Family is very helpful. Kyra lives 5 minutes from their home and is with them daily and at night when needed. 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 She states when they are no longer able to live in their home, she or her sister will bring them to live with them. Smoking Status: Never smoker Past Alcohol Use History: None Reported Past Drug Use History: None Reported - Past Family History Father Family Medical History: Dementia Additional Family Medical History / Comment(s): Father was close to 90yrs old when he passed. Mother Family Medical History: Osteoarthritis (OA) Additional Family Medical History / Comment(s): Mother was close to 90 when she . Medications and Allergies Home Medications Medication Instructions Recorded Confirmed Type Amitriptyline HCl [Elavil] 10 mg PO HS 07/09/16 07/09/16 History Aspirin EC [Ecotrin Low Dose] 81 mg PO DAILY 07/09/16 07/09/16 History Cholecalciferol [Vitamin D3] 1,000 unit PO DAILY 07/09/16 07/09/16 History Donepezil HCl [Aricept ODT] 5 mg PO HS 07/09/16 07/09/16 History Fenofibrate [Lofibra] 54 mg PO DAILY 07/09/16 07/09/16 History HYDROcodone/APAP 5-325MG [[place] 1 tab PO Q8H PRN 07/09/16 07/09/16 History 5-325] Isosorbide Mononitrate ER [Imdur] 30 mg PO DAILY 07/09/16 07/09/16 History Lidocaine 5% Oint [Xylocaine 5% 1 applic TOPICAL TID PRN 07/09/16 07/09/16 History Oint] Naproxen Sodium [Aleve] 220 - 440 mg PO Q6H PRN 07/09/16 07/09/16 History Nitroglycerin Sl Tabs [Nitrostat] 0.4 mg SUBLINGUAL Q5M PRN 07/09/16 07/09/16 History Olmesartan/Hydrochlorothiazide 1 tab PO DAILY 07/09/16 07/09/16 History [Olmesartan-Hctz 40-25 mg Tab] Simethicone [Gas-X] 125 mg PO Q8H PRN 07/09/16 07/09/16 History traMADol HCL [Ultram] 50 mg PO DAILY PRN 07/09/16 07/09/16 History Allergies Allergy/AdvReac Type Severity Reaction Status Date / Time No Known Allergies Allergy Verified 07/09/16 08:32 Physical Exam Vitals: Vital Signs Temp Pulse Pulse Resp BP BP BP 07/10/16 11:16 45 L 18 116/89 07/10/16 08:00 68 18 149/67 07/10/16 04:00 97.2 F L 50 L 16 123/61 07/10/16 01:00 140/72 07/10/16 00:00 60 18 229/92 192/88 07/09/16 20:00 97.5 F L 51 L 18 174/93 07/09/16 16:00 97.2 F L 55 L 16 164/76 07/09/16 12:52 97.5 F L 50 L 18 152/70 07/09/16 12:09 97 F L 55 L 18 149/67 07/09/16 12:06 97.0 F L 47 L 18 149/67 Pulse Ox 07/10/16 11:16 93 L 07/10/16 08:00 96 07/10/16 04:00 94 L 07/10/16 01:00 07/10/16 00:00 96 07/09/16 20:00 98 07/09/16 16:00 95 07/09/16 12:52 97 07/09/16 12:09 98 07/09/16 12:06 96 Intake and Output 07/09/16 07/10/16 07/10/16 22:59 06:59 14:59 Intake Total 120 800 840 Output Total 300 Balance -180 800 840 Intake: IV 200 Intake, IV Titration 800 640 Amount Sodium Chloride 0.9% 1, 800 640 000 ml @ 80 mls/hr IV . [id number] [facility] Rx#:[id number] Oral 120 Output: Urine 300 Other: # Voids 1 2 # Bowel Movements 0 Weight 77.9 kg 77.9 kg Patient Weight 07/11/16 06:59 Weight 77.9 kg PHYSICAL EXAMINATION: HEENT: Head is atraumatic, normocephalic. Pupils equal, round. Neck is supple. There is no elevated jugular venous pressure. HEART EXAMINATION: S1 and S2 systolic murmur heard CHEST EXAMINATION: Lungs are clear to auscultation and precussion. No chest wall tenderness is noted on palpation or with deep breathing. ABDOMEN: Soft, nontender. Bowel sounds are heard. No organomegaly noted. EXTREMITIES: 2+ peripheral pulses with no evidence of peripheral edema and no calf tenderness noted. NEUROLOGIC patient is awake, alert and oriented -3. . Results 07/10/16 06:12 07/10/16 06:12 Cardiac Enzymes 07/10/16 Range/Units 06:12 AST 27 (14-36) U/L CBC 07/10/16 Range/Units 06:12 WBC 5.6 (3.8-10.6) k/uL RBC 3.87 (3.80-5.40) m/uL Hgb 11.9 (11.4-16.0) gm/dL Hct 35.6 (34.0-46.0) % Plt Count 220 (150-450) k/uL Comprehensive Metabolic Panel 07/10/16 Range/Units 06:12 Sodium 138 (137-145) mmol/L Potassium 4.0 (3.5-5.1) mmol/L Chloride 109 H (98-107) mmol/L Carbon Dioxide 19 L (22-30) mmol/L BUN 10 (7-17) mg/dL Creatinine 1.35 H (0.52-1.04) mg/dL Glucose 99 (74-99) mg/dL Calcium 9.7 (8.4-10.2) mg/dL AST 27 (14-36) U/L ALT 33 (9-52) U/L Alkaline Phosphatase 41 (38-126) U/L Total Protein 6.5 (6.3-8.2) g/dL Albumin 3.9 (3.5-5.0) g/dL Current Medications Generic Name Dose Route Start Last Admin Trade Name Freq PRN Reason Stop Dose Admin Hydrocodone Bitart/Acetaminophen 1 each 07/09/16 11:12 [place] 5-325 PO Q8H PRN Moderate Pain Amitriptyline HCl 10 mg 07/09/16 21:00 07/09/16 20:48 Elavil PO 10 mg HS [facility] Administration Aspirin 81 mg 07/10/16 09:00 07/10/16 08:39 Aspirin PO 81 mg DAILY [facility] Administration Donepezil HCl 5 mg 07/09/16 21:00 07/09/16 20:48 Aricept PO 5 mg HS [facility] Administration Famotidine 20 mg 07/10/16 09:00 07/10/16 08:40 Pepcid PO 20 mg DAILY [facility] Administration Hydrochlorothiazide 25 mg 07/10/16 09:00 07/10/16 08:40 Hydrodiuril PO 25 mg DAILY [facility] Administration Hydromorphone HCl 0.5 mg 07/09/16 14:44 07/10/16 04:22 Dilaudid IVP 0.5 mg Q4HR PRN Administration Pain Sodium Chloride 1,000 mls @ 80 mls/hr 07/09/16 11:15 07/10/16 05:44 Saline 0.9% IV Not Given .[id number] [facility] Isosorbide Mononitrate 30 mg 07/10/16 09:00 07/10/16 08:39 Imdur PO 30 mg DAILY [facility] Administration Lidocaine HCl 1 applic 07/09/16 11:12 Lmx 4 TOPICAL TID PRN KNEE PAIN Lorazepam 0.5 mg 07/09/16 20:59 Ativan IV Q6HR PRN Anxiety Losartan Potassium 150 mg 07/10/16 09:00 07/10/16 08:39 Cozaar PO 150 mg DAILY [facility] Administration Naloxone HCl 0.2 mg 07/09/16 11:06 Narcan IV Q2M PRN Opioid Reversal Nitroglycerin 0.4 mg 07/09/16 11:12 Nitrostat SUBLINGUAL Q5M PRN Chest Pain Ondansetron HCl 4 mg 07/09/16 19:04 Zofran IVP Q6HR PRN Nausea And Vomiting Tramadol HCl 50 mg 07/09/16 11:12 Ultram PO DAILY PRN Mild Pain Trimethobenzamide HCl 200 mg 07/09/16 17:07 07/09/16 20:42 Tigan IM 200 mg Q6HR PRN Administration Nausea Intake and Output 07/09/16 07/10/16 07/10/16 22:59 06:59 14:59 Intake Total 120 800 840 Output Total 300 Balance -180 800 840 Intake: IV 200 Intake, IV Titration 800 640 Amount Sodium Chloride 0.9% 1, 800 640 000 ml @ 80 mls/hr IV . [id number] [facility] Rx#:[id number] Oral 120 Output: Urine 300 Other: # Voids 1 2 # Bowel Movements 0 Weight 77.9 kg 77.9 kg Patient Weight 07/11/16 06:59 Weight 77.9 kg 07/10/16 06:12 07/10/16 06:12 EKG Interpretations (text) EKG shows sinus bradycardia with a heart rate of 49 Assessment and Plan Plan: Assessment and plan #1 symptoms of abdominal pain with significant nausea and vomiting, status post EGD of today, which revealed antral gastritis, blood night as, mild esophagitis , no evidence of hiatal hernia. Abdominal CT did not reveal any significant findings. #2 headaches, CAT scan of the brain did not reveal any acute intracranial hemorrhage or midline shift #3 hypertension history #4 mild memory loss #5 bradycardia Plan Will obtain an echocardiogram with Doppler study. TSH is normal. We will also attempt to get a record of the patient's recent Holter monitor performed as an outpatient. Discontinue Benicar and add hydralazine to her medication regime. Monitor for any significant bradycardia. Further recommendations to follow. DNP note has been reviewed, I agree with a documented findings and plan of care. Patient was seen and examined.
[2016-07-10] MEDS: HYDROcodone/APAP 5-325MG 1 EACH TAB PO PRN (11:54)
--- NOTE | 2016-07-10 13:54 | P.CN ---
Psychiatric Consult - . Consult date: 07/10/16 Consult:: IDENTIFYING DATA: Ms. Forrester is a 76-year-old female who has a history of a major neurocognitive disorder due to Alzheimer's disease. Medicine consult psychiatry to evaluate her for a failure to thrive and depression. HISTORY OF PRESENT ILLNESS: I reviewed the medical record and interviewed Ms. Forrester and her daughter Kyra. Ms. Forrester was unable to provide much information regarding the reason for her hospitalization. She looked to her daughter several times for assistance in answering questions. She cried frequently during the interview when describing the problems with her memory, her lack of appetite and her feelings of helplessness. Overall, however, she feels satisfied and happy with her life. She denied that she feels that her life is empty or that she gets bored. She frequently feels that something bad is going to happen to her. She complains of feeling helpless about her illness and the burden of her illness on her and family. She is frustrated by her problems with memory. She denied feeling worthless or hopeless. She denied that she thinks that most people are better off than her. She often feels a general sense of anxiety present throughout the day that his often excessive and sometimes contributes to her restlessness. She denied symptoms suggestive of panic attack. She denied obsessions or compulsions. Her daughter is concerned about her appetite and apparent weight loss. Her daughter also talked about periods of increased confusion in the evening and nightime that has been increasing in severity. During these episodes she is confused, paranoid and her daughter described her as experiencing hallucinations. Her daughter also expressed concern about her her sleep. She believes her mother does not sleep restfully and wakes up frequently during the night time. PAST PSYCHIATRIC HISTORY: She is no history of mental health treatment SUBSTANCE USE HISTORY: She denied use of alcohol or drugs.. FAMILY PSYCHIATRIC/SUBSTANCE USE HISTORY: Her father had Alzheimer's disease. SOCIAL HISTORY: She was born in [place] and raised by an intact family. She has been to her for 58 years. She thought she had "5 or 6" children but her daughter indicated that she has 4 children. She has several grandchildren and great-grandchildren. 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 MENTAL STATUS EXAM: She presented as a disheveled and tearful-appearing 76-year- old female who was pleasant on approach. She is wearing a dampened facial towel over her head and complained of having a "severe" headache. She maintained eye contact and appeared to attended to the interview. She had no distinguishing features or prominent physical abnormalities. She had a distressed facial expression. She was alert and oriented to person only. She appeared confused when I asked her the year. She thought the month was March. She did not recognize that she was in hospital and could not identify the name of the hospital. She restlessly twisted, untwisted and folded a facial towel. She displayed no abnormal involuntary movements. Her speech was spontaneous with variable rate, rhythm and volume consistent with her affect. Her affect was depressed and labile. She denied suicidal ideation or wishes. She denied homicidal ideation. She is less feelings of helplessness but denied hopelessness or worthlessness. She ruminated about her illness and her memory. She did not express ideas of reference, paranoid ideation or delusional beliefs. Her thinking was concrete but her associations were logical. She denied current conditions and did not appear to be responding to internal stimuli. IMPRESSIONS: She is an elderly woman with a history of an Alzheimer's disease. The disease has progressed to where she is not oriented to time and place. She has marked impairment in short-term memory and impairment of long-term memory. She is unable to care for herself and relies upon the insistence of her family for her ADLs. She is having increasing confusion, paranoia and psychotic symptoms in the evening and nighttime. He is depressed and anxious regarding the impairments in severity of her disease. Her mood, anxiety, periods of agitation, paranoia and psychosis may benefit from a trial of an antidepressant and/or antipsychotic medication. However, the benefits may be limited. PLAN: Discontinue Elavil 10 mg at bedtime and begin a trial of Seroquel 50 mg at bedtime with titration cording to clinical effect and tolerance. Begin a trial of citalopram 10 mg daily, again, with titration according to clinical effect and tolerance. Will follow.. 07/10/16 13:23 07/10/16 13:36
[2016-07-10] MEDS: DONEPEZIL 5 MG TAB PO SCH (20:03)
[2016-07-10] MEDS: hydrALAZINE HCL 25 MG TAB PO SCH (20:03)
[2016-07-10] MEDS ORDERED: QUEtiapine 50 MG TAB PO SCH (21:00)
--- NOTE | 2016-07-11 06:31 | PN ---
SUBJECTIVE: This 76-year-old white female who was very agitated, pulled out her IV, did not know where she was, thought she was at home, became ( ), had delirium on top of her dementia. Her home medications have been reordered. She is more alert. Does not remember anything that happened last night. She still has progressive vomiting. On clear liquid diet. Discussed case with Dr. Torres who is going to do a an EGD on her today. She has progressive vomiting despite a CAT scan that is normal. Her creatinine has improved from 1.59 to 1.35. Psychiatric consult is also pending on this patient and they recommend diagnosis of Alzheimer's disease. He says she is not oriented to time and place, marked impairment. She is paranoid and has psychotic symptoms in the evening. She is depressed and anxious. Her mood and anxiety appears early agitation, paranoia and psychosis may benefit from a trial of an antidepressant or antipsychotic medication. He recommended to discontinue Elavil at bedtime; begin Seroquel 50 mg at bedtime. Titration to clinical response. Continue citalopram 10 mg in the morning which will be done. Cardiology also saw her today for bradycardia. His recommendation was ordering an echo. Discontinue Benicar ( ) and added hydralazine and monitor for any bradycardia for further recommendations. CARDIOVASCULAR: S1 and S2. LUNGS: Clear. GI: Soft. HEMATOLOGIC: Negative Homans. PLAN: Continue with current treatments with mental status drugs change, EGD, Cardiology, blood pressure modification. Please see further orders.
[2016-07-11] MEDS: ISOSORBIDE MONONITRATE ER 30 MG TAB.ER.24H PO SCH (08:15)
[2016-07-11] MEDS: HYDROcodone/APAP 5-325MG 1 EACH TAB PO PRN (08:15)
[2016-07-11] MEDS: hydrALAZINE HCL 25 MG TAB PO SCH (08:16)
[2016-07-11] MEDS: ASPIRIN 81 MG CHEW PO SCH (08:16)
[2016-07-11] MEDS: FAMOTIDINE 20 MG TAB PO SCH (08:16)
[2016-07-11] MEDS ORDERED: CITALOPRAM HYDROBROMIDE 10 MG TAB PO SCH (09:00)
[2016-07-11 09:02] VITALS: RESP 20; TEMP 97.6
--- NOTE | 2016-07-11 10:04 | ECHOF ---
Referral Reason:bradycardia MEASUREMENTS -------- HEIGHT: 152.4 cm WEIGHT: 74.8 kg BP: 140/60 RVIDd: 2.8 cm (< 3.3) IVSd: 1.3 cm (0.6 - 1.1) LVIDd: 3.3 cm (3.9 - 5.3) LVPWd: 1.2 cm (0.6 - 1.1) IVSs: 1.6 cm LVIDs: 2.3 cm LVPWs: 1.4 cm LA Diam: 3.3 cm (2.7 - 3.8) LAESV Index (A-L): 22.29 ml/m Ao Diam: 2.8 cm (2.0 - 3.7) AV Cusp: 1.4 cm (1.5 - 2.6) LA Diam: 3.4 cm (2.7 - 3.8) MV EXCURSION: 20.477 mm (> 18.000) MV EF SLOPE: 58 mm/s (70 - 150) EPSS: 0.4 cm MV E Erasmo: 0.65 m/s MV DecT: 270 ms MV A Erasmo: 0.98 m/s MV E/A Ratio: 0.67 RAP: 5.00 mmHg RVSP: 22.91 mmHg FINDINGS -------- Sinus rhythm. This was a technically adequate study. There is mild concentric left ventricular hypertrophy. Overall left ventricular systolic function is normal with, an EF between 55 - 60 %. The right ventricle is normal in size. Normal LA size by volume 22+/-6 ml/m2. The right atrial size is normal. There is mild aortic valve sclerosis. There is no evidence of aortic regurgitation. Mild mitral annular calcification present. Mild mitral regurgitation is present. Mild tricuspid regurgitation present. There is no evidence of pulmonary hypertension. The right ventricular systolic pressure, as measured by Doppler, is 22.91mmHg. There is no pulmonic regurgitation present. The aortic root size is normal. There is no pericardial effusion. CONCLUSIONS -------- 1. There is mild concentric left ventricular hypertrophy. 2. Overall left ventricular systolic function is normal with, an EF between 55 - 60 %. 3. There is mild aortic valve sclerosis. 4. Mild mitral annular calcification present. 5. Mild mitral regurgitation is present. 6. Mild tricuspid regurgitation present. 7. There is no evidence of pulmonary hypertension. 8. The right ventricular systolic pressure, as measured by Doppler, is 22.91mmHg. MIXER SLAGMAN: Kya Giraldo RDCS
--- NOTE | 2016-07-11 11:28 | P.PN ---
Subjective Patient is a 76-year-old female admitted with intractable nausea, vomiting, and epigastric pain. Patient underwent EGD yesterday with findings of antral gastritis, duodenitis, esophagitis, no evidence of hiatal hernia. Patient tolerated procedure well. Upon exam, patient is lying in bed. Patient complains of frontal headache. Denies nausea, vomiting, or abdominal pain. Patient had a bowel movement last night. Patient states she has no appetite. Afebrile. No evidence of leukocytosis. Objective - Vital Signs Vital signs: Vital Signs Temp 97.6 F 07/11/16 08:00 Pulse 58 L 07/11/16 08:00 Resp 20 07/11/16 08:00 BP 142/76 07/11/16 08:00 Pulse Ox 97 07/11/16 08:00 Intake & Output 07/10/16 07/11/16 07/11/16 18:59 06:59 18:59 Intake Total 840 300 Output Total 0 Balance 840 300 Weight 77.9 kg Intake: IV 200 Intake, IV Titration 640 Amount Sodium Chloride 0.9% 1, 640 000 ml @ 80 mls/hr IV . [id number] [facility] Rx#:[id number] Oral 0 300 Output: Urine 0 Other: # Voids 1 - Exam GENERAL: Pt awake and alert, well-nourished, and in no acute distress. HEAD: Atraumatic, normocephalic. EYES: Pupils equal and round. Sclera anicteric, conjunctiva are normal. ENT: Moist mucous membranes. LUNGS: Breath sounds clear to auscultation bilaterally. No wheezes, rales, or rhonchi. HEART: Heart S1, S2, no S3 or S4. Systolic murmur. ABDOMEN: Soft, nontender, nondistended, normoactive bowel sounds. No guarding, no rebound. No masses or organomegaly appreciated. EXTREMITIES: Palpable peripheral pulses. NEUROLOGICAL: Pt oriented to person and place. Disoriented to time. PSYCH: Normal mood, normal affect. SKIN: Warm, dry. - Labs CBC & Chem 7: 07/10/16 06:12 07/10/16 06:12 Assessment and Plan Plan: Impression: 1. Nausea and vomiting, present on admission, resolved. 2. Status post EGD on 07/11/2016 with evidence of antral gastritis, duodenitis , and mild esophagitis. 3. Obesity. BMI 32.4. 4. History of cholecystectomy. Plan: Advance diet to cardiac diet. Continue Pepcid. Continue supportive treatment and pain management. Continue to follow with medical team. The above impression and plan have been discussed and directed by Dr. Torres. Chente SMALLS acting as scribe for Dr. Torres.
[2016-07-11 11:31] VITALS: BP 136/66; PULSE 50
--- NOTE | 2016-07-11 12:39 | P.CNPUL ---
History of Present Illness Consult date: 07/11/16 Reason for consult: obstructive sleep apnea Chief complaint: Headache and vomiting History of present illness: This is a 76-year-old female who presented emergency department on 07/09/2016 complaining of headache and vomiting. She also complained of feeling lightheaded , weak, dizzy. The patient was admitted to the hospital and underwent CT of the brain which showed age-related atrophy. She also had a chest x-ray and KUB which was negative. The patient does have underlying Alzheimer's dementia. She apparently had been having knee pain and was taking NSAIDs at home. She was also admitted with bradycardia. She had a CT of the abdomen and pelvis which was negative. She also underwent echocardiogram which showed an RVSP of 22 mmHg , ejection fraction of 55-60%. She subsequently underwent EGD on 07/10/2016. She was found to have gastritis and esophagitis. Her blood cultures have been negative. Pulmonary is consulted for possible obstructive sleep apnea. The patient apparently has been talking in her sleep and having vivid dreams. Per the patient's daughter the patient is up all night confused and combative. She does snore. She has not had any witnessed apneas. She does not wake up coughing , choking, gagging. The patient has never undergone sleep testing in the past. Review of Systems All systems: negative Past Medical History Past Medical History: Dementia, Hyperlipidemia, Hypertension, Memory Impairment , Osteoarthritis (OA) Additional Past Medical History / Comment(s): Arthritis in bilateral hands/L knee pain-which is worse in the evening and thru the night-does not sleep well due to this, memory problems, stress incontinence-wears a pad, unsteady on her feet. History of Any Multi-Drug Resistant Organisms: None Reported Past Surgical History: Cholecystectomy, Heart Catheterization, Hysterectomy Additional Past Surgical History / Comment(s): Benign lumpectomy (laterality unknown), left knee arthroscopy, 1999 cardiac cath-normal, D&C. Past Anesthesia/Blood Transfusion Reactions: No Reported Reaction, Motion Sickness Past Psychological History: Anxiety, Depression Additional Psychological History / Comment(s): Pt has dementia. She also states she feels depressed at times about her health and how it impacts her family. Pt states she does not want to commit suicide or harm herself but has on occasion wished she would . Daughter at bedside, states family believes pt's dementia makes her think she is more depressed. Pt's spouse is not healthy. They live in an apartment. They have 3 daughters and 1 son. Family is very helpful. Kyra lives 5 minutes from their home and is with them daily and at night when needed. 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 She states when they are no longer able to live in their home, she or her sister will bring them to live with them. Smoking Status: Never smoker Past Alcohol Use History: None Reported Past Drug Use History: None Reported - Past Family History Father Family Medical History: Dementia Additional Family Medical History / Comment(s): Father was close to 90yrs old when he passed. Mother Family Medical History: Osteoarthritis (OA) Additional Family Medical History / Comment(s): Mother was close to 90 when she . Medications and Allergies Home Medications Medication Instructions Recorded Confirmed Type Amitriptyline HCl [Elavil] 10 mg PO HS 07/09/16 07/09/16 History Aspirin EC [Ecotrin Low Dose] 81 mg PO DAILY 07/09/16 07/09/16 History Cholecalciferol [Vitamin D3] 1,000 unit PO DAILY 07/09/16 07/09/16 History Donepezil HCl [Aricept ODT] 5 mg PO HS 07/09/16 07/09/16 History Fenofibrate [Lofibra] 54 mg PO DAILY 07/09/16 07/09/16 History HYDROcodone/APAP 5-325MG [[place] 1 tab PO Q8H PRN 07/09/16 07/09/16 History 5-325] Isosorbide Mononitrate ER [Imdur] 30 mg PO DAILY 07/09/16 07/09/16 History Lidocaine 5% Oint [Xylocaine 5% 1 applic TOPICAL TID PRN 07/09/16 07/09/16 History Oint] Naproxen Sodium [Aleve] 220 - 440 mg PO Q6H PRN 07/09/16 07/09/16 History Nitroglycerin Sl Tabs [Nitrostat] 0.4 mg SUBLINGUAL Q5M PRN 07/09/16 07/09/16 History Olmesartan/Hydrochlorothiazide 1 tab PO DAILY 07/09/16 07/09/16 History [Olmesartan-Hctz 40-25 mg Tab] Simethicone [Gas-X] 125 mg PO Q8H PRN 07/09/16 07/09/16 History traMADol HCL [Ultram] 50 mg PO DAILY PRN 07/09/16 07/09/16 History Allergies Allergy/AdvReac Type Severity Reaction Status Date / Time No Known Allergies Allergy Verified 07/09/16 08:32 Physical Exam Osteopathic Statement: *. No significant issues noted on an osteopathic structural exam other than those noted in the History and Physical/Consult. Vitals: Vital Signs Temp Pulse Resp BP Pulse Ox 07/11/16 11:31 50 L 20 136/66 96 07/11/16 08:00 97.6 F 58 L 20 142/76 97 07/11/16 04:00 97 F L 57 L 16 147/78 97 07/11/16 00:00 75 16 129/63 96 07/10/16 20:00 96.8 F L 61 16 195/63 97 07/10/16 16:35 98.3 F 57 L 18 192/93 96 Intake and Output 07/10/16 07/11/16 07/11/16 22:59 06:59 14:59 Intake Total 300 120 Balance 300 120 Intake: Oral 300 120 Other: # Voids 1 200 Gen.: Patient is alert, no acute distress, [place] 4, retrognathia Cardiovascular: Regular rate and rhythm, S1/S2 Lungs: Clear to auscultation bilaterally no wheezes rales or rhonchi Abdomen: Soft nontender nondistended positive bowel sounds Extremities: No edema Results - Laboratory Findings CBC and BMP: 07/10/16 06:12 07/10/16 06:12 Abnormal lab findings: Abnormal Labs 07/10/16 06:12 Chloride 109 H Carbon Dioxide 19 L Creatinine 1.35 H - Diagnostic Findings Chest x-ray: report reviewed, image reviewed Assessment and Plan Plan: Questionable obstructive sleep apnea Snoring Retrognathia Bradycardia Intractable nausea and vomiting Cephalgia Osteoarthritis taking NSAIDs Esophagitis and gastritis Acute kidney injury Alzheimer's dementia with sundowning Maintain saturation greater than or equal to 90% Will check nocturnal oximetry tonight The patient's daughter is at bedside and the plan of care is discussed. The patient can be set up for a home sleep test once she is discharged. Continue medications per psychiatry for possible sundowning Outpatient pulmonary follow-up for above testing. Thank you for this consultation we'll continue to follow along.
--- NOTE | 2016-07-11 15:54 | P.PN ---
Subjective This is a pleasant 76-year-old female who presented to the hospital primarily with symptoms of abdominal pain and vomiting, associated headache. According to the patient, her problems initially started when she was experiencing severe knee pain in her left knee. She is scheduled for surgery within a month. The patient was initiated on Motrin 600 mg at home to alleviate some of her pain, immediately following that patient started developing nausea and vomiting, with associated headache. Patient also states that she has not been eating and drinking at home. Patient states that she became dizzy and lightheaded, felt extremely weak. For these reasons she came to the emergency room for further evaluation. Her initial EKG on presentation here showed a sinus bradycardia with a heart rate of 49. and for this reason cardiology consultation was requested. Patient underwent an EGD yesterday which revealed antral gastritis, duodenitis, and mild esophagitis. No evidence of any hiatal hernia. Patient's Benicar was discontinued yesterday and she was initiated on hydralazine. Overall the heart rate today is remaining in the 50s at times low 60s. There are periods of time when she is sleeping with a heart rate dips down into the mid 40s will increase her dose of hydralazine today. 10 you to monitor heart rate. Objective - Vital Signs Vital signs: Vital Signs Temp 97.6 F 07/11/16 08:00 Pulse 50 L 07/11/16 11:31 Resp 20 07/11/16 11:31 BP 136/66 07/11/16 11:31 Pulse Ox 96 07/11/16 11:31 Intake & Output 07/10/16 07/11/16 07/11/16 18:59 06:59 18:59 Intake Total 840 300 240 Output Total 0 0 Balance 840 300 240 Weight 77.9 kg Intake: IV 200 Intake, IV Titration 640 Amount Sodium Chloride 0.9% 1, 640 000 ml @ 80 mls/hr IV . [id number] [facility] Rx#:[id number] Oral 0 300 240 Output: Urine 0 0 Other: # Voids 1 200 - Exam PHYSICAL EXAMINATION: HEENT: Head is atraumatic, normocephalic. Pupils equal, round. Neck is supple. There is no elevated jugular venous pressure. HEART EXAMINATION: S1 and S2 systolic murmur heard CHEST EXAMINATION: Lungs are clear to auscultation and precussion. No chest wall tenderness is noted on palpation or with deep breathing. ABDOMEN: Soft, nontender. Bowel sounds are heard. No organomegaly noted. EXTREMITIES: 2+ peripheral pulses with no evidence of peripheral edema and no calf tenderness noted. NEUROLOGIC patient is awake, alert and oriented -3. . - Labs CBC & Chem 7: 07/10/16 06:12 07/10/16 06:12 Assessment and Plan Plan: Assessment and plan #1 symptoms of abdominal pain with significant nausea and vomiting, status post EGD, which revealed antral gastritis, blood night as, mild esophagitis, no evidence of hiatal hernia. Abdominal CT did not reveal any significant findings. #2 headaches, CAT scan of the brain did not reveal any acute intracranial hemorrhage or midline shift #3 hypertension history #4 mild memory loss #5 bradycardia Plan Echocardiogram with Doppler study was performed which revealed an ejection fraction of 55-60%. We will increase dose of hydralazine today and continue to monitor heart rate. DNP note has been reviewed, I agree with a documented findings and plan of care. Patient was seen and examined.
[2016-07-11] MEDS ORDERED: hydrALAZINE HCL 50 MG TAB PO SCH (21:00)
--- NOTE | 2016-07-12 07:50 | DS ---
DATE OF ADMISSION: 07/09/2016 DATE OF DISCHARGE: 07/11/2016 DISCHARGE MEDICATIONS: 1. Aspirin 81 mg daily. 2. Celexa 10 mg daily. 3. Aricept 5 mg daily. 4. Pepcid 20 daily. 5. Apresoline 25 b.i.d. 6. Imdur 30 mg daily. 7. Seroquel 50 at bedtime. 8. Tramadol 50 every 8 hours p.r.n. 9. Fioricet one every 8 hours p.r.n. for headache. 10. Tigan 300 mg every 6 hours p.r.n. for nausea. CONDITION: Stable. PROGNOSIS: Guarded. Ambulate as tolerated. Follow up as an outpatient in a week with Dr. Turner. HOSPITAL COURSE OF EVENTS: This is a 76-year-old white female who was admitted with significant nausea, vomiting, abdominal pain. Surgical consult did EGD, showed gastritis. She was kept on omeprazole. The nausea and vomiting improved. Her left knee is significantly arthritic, which will be followed up with orthopedics as an outpatient. She had persistent headaches. Her blood pressure medicines will be adjusted. Her dementia with delirium in the middle of the night was treated with Seroquel. Elavil was discontinued. She was placed on Citalopram in the morning. The patient stabilized from a medical standpoint to follow up as an outpatient with Dr. Turner in a week. DISCHARGE DIAGNOSES: 1. Dementia. 2. Delirium. 3. Mood disorder. 4. Depression. 5. Anxiety. 6. Progressive vomiting secondary to gastritis. 7. Coronary artery disease. 8. Probable migraine. 9. Persistent nausea. 10. Dyslipidemia. CONDITION: Stable. PROGNOSIS: Guarded.
== END 2016-07-11 15:00 | disposition home or self-care (01) ==
LOC: EC 07:17 → 6SEL 11:06 → INTOOBSV 11:06 → 6SEL 12:00
PROVIDERS: ADMIT Family Medicine; ATTEND Family Medicine
DX: G30.9 Alzheimer's disease, unspecified (principal); F02.80 Dementia in other diseases classified elsewhere, unspecified severity, without behavioral disturbance, psychotic disturbance, mood disturbance, and anxiety; E66.9 Obesity, unspecified; Z68.32 Body mass index [BMI] 32.0-32.9, adult; E78.5 Hyperlipidemia, unspecified; E86.0 Dehydration; R51 Headache; R11.2 Nausea with vomiting, unspecified; F22 Delusional disorders; F32.9 Major depressive disorder, single episode, unspecified; F41.9 Anxiety disorder, unspecified; G47.33 Obstructive sleep apnea (adult) (pediatric); I10 Essential (primary) hypertension; I25.10 Atherosclerotic heart disease of native coronary artery without angina pectoris; K20.9 Esophagitis, unspecified; K29.60 Other gastritis without bleeding; K29.80 Duodenitis without bleeding; N17.9 Acute kidney failure, unspecified; R62.7 Adult failure to thrive; Z79.82 Long term (current) use of aspirin; Z79.899 Other long term (current) drug therapy; Z90.49 Acquired absence of other specified parts of digestive tract; R00.1 Bradycardia, unspecified
CPT/HCPCS: 96375 ×3; 96376 ×5; 96361 ×7; 96374 ×2; 99285 ×2; 36415; 93005; 93306; 88305; 80053 ×2; 84443; 82150; 83036; 82550; 82553; 83605; 83690; 84484; 85025 ×2; 81003; 88342; 87040; 87502; 71020; 74000; 70450; 74176; 43239; G0378 ×3; J3250; J2405; J1170 ×2; J2704

== ENCOUNTER 2016-07-19 16:49 | Emergency (ER) | payer MEDICARE, BC ==
[2016-07-19] MEDS ORDERED: ENALAPRILAT 1.25 MG/ML 1 ML VIAL IVP STA (17:46)
[2016-07-19] MEDS ORDERED: MORPHINE SULFATE 4 MG/ML SYRINGE IV STA (17:46)
--- NOTE | 2016-07-19 17:50 | ED ---
General Adult HPI - General Chief complaint: Recheck/Abnormal Lab/Rx Stated complaint: High blood pressure Time Seen by Provider: 07/19/16 17:35 Source: patient, family, RN notes reviewed Mode of arrival: ambulatory Limitations: no limitations - History of Present Illness Initial comments: Patient is a pleasant 76-year-old female presenting to the emergency department with concerns for high blood pressure. Blood pressure at home was 230/110. Patient does complain of headache. Patient did have similar problems and was discharged from the hospital 1 week ago. Patient had headaches at that time and has been having headaches since that time. Headache is frontal. Gradual onset. Onset today was around 1:00. Patient did have a computed tomography scan done last week. Patient does have some Alzheimer's, no confusion other than normal. No isolated area of weakness. Patient has no complaints of discomfort than her headache. Patient recently had blood pressure medication changed to hydralazine. Patient denies having stress however daughter states there is quite a bit of stress. - Related Data Home Medications Medication Instructions Recorded Confirmed Aspirin EC [Ecotrin Low Dose] 81 mg PO DAILY 07/09/16 07/19/16 Donepezil HCl [Aricept ODT] 5 mg PO HS 07/09/16 07/19/16 Isosorbide Mononitrate ER [Imdur] 30 mg PO DAILY 07/09/16 07/19/16 Nitroglycerin Sl Tabs [Nitrostat] 0.4 mg SUBLINGUAL Q5M PRN 07/09/16 07/19/16 Previous Rx's Medication Instructions Recorded Butalb/APAP/Caff 50-325-40Mg 1 tab PO Q8HR PRN #1 tablet 07/11/16 [Fioricet 50-325-40] Citalopram Hydrobromide [CeleXA] 10 mg PO DAILY tab 07/11/16 Famotidine [Pepcid] 20 mg PO DAILY tab 07/11/16 QUEtiapine [SEROquel] 50 mg PO HS tab 07/11/16 Trimethobenzamide [Tigan] 300 mg PO TID PRN #1 capsule 07/11/16 hydrALAZINE HCL [Apresoline] 25 mg PO BID tab 07/11/16 traMADol HCl [Ultram] 50 mg PO Q8HR PRN #1 tab 07/11/16 Allergies Allergy/AdvReac Type Severity Reaction Status Date / Time nickel Allergy Rash/Hives Verified 07/19/16 18:37 Review of Systems ROS Statement: Those systems with pertinent positive or pertinent negative responses have been documented in the HPI. ROS Other: All systems not noted in ROS Statement are negative. Constitutional: Denies: fever Eyes: Denies: eye pain ENT: Denies: ear pain Respiratory: Denies: cough Cardiovascular: Denies: chest pain Endocrine: Denies: fatigue Gastrointestinal: Denies: abdominal pain Genitourinary: Denies: dysuria Musculoskeletal: Denies: back pain Skin: Denies: rash Neurological: Reports: headache. Denies: confusion Past Medical History Past Medical History: Dementia, Hyperlipidemia, Hypertension, Memory Impairment , Osteoarthritis (OA) Additional Past Medical History / Comment(s): Arthritis in bilateral hands/L knee pain-which is worse in the evening and thru the night-does not sleep well due to this, memory problems, stress incontinence-wears a pad, unsteady on her feet. History of Any Multi-Drug Resistant Organisms: None Reported Past Surgical History: Cholecystectomy, Heart Catheterization, Hysterectomy Additional Past Surgical History / Comment(s): Benign lumpectomy (laterality unknown), left knee arthroscopy, 1999 cardiac cath-normal, D&C. Past Anesthesia/Blood Transfusion Reactions: No Reported Reaction, Motion Sickness Past Psychological History: Anxiety, Depression Additional Psychological History / Comment(s): Pt has dementia. She also states she feels depressed at times about her health and how it impacts her family. Pt states she does not want to commit suicide or harm herself but has on occasion wished she would . Daughter at bedside, states family believes pt's dementia makes her think she is more depressed. Pt's spouse is not healthy. They live in an apartment. They have 3 daughters and 1 son. Family is very helpful. Kyra lives 5 minutes from their home and is with them daily and at night when needed. 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 She states when they are no longer able to live in their home, she or her sister will bring them to live with them. Smoking Status: Never smoker Past Alcohol Use History: None Reported Past Drug Use History: None Reported - Past Family History Father Family Medical History: Dementia Additional Family Medical History / Comment(s): Father was close to 90yrs old when he passed. Mother Family Medical History: Osteoarthritis (OA) Additional Family Medical History / Comment(s): Mother was close to 90 when she . General Exam Limitations: no limitations General appearance: alert, in no apparent distress Head exam: Present: atraumatic Eye exam: Present: normal appearance, PERRL, EOMI. Absent: nystagmus ENT exam: Present: normal oropharynx Neck exam: Present: normal inspection Respiratory exam: Present: normal lung sounds bilaterally Cardiovascular Exam: Present: regular rate, normal rhythm GI/Abdominal exam: Present: soft. Absent: tenderness Extremities exam: Present: normal inspection Neurological exam: Present: alert, oriented X3, CN II-XII intact. Absent: motor sensory deficit Expanded Speech: Present: fluid speech Cranial nerves: EOM's Intact: Normal, Facial Sensation: Normal Sensory exam: Upper Extremity Light Touch: Normal, Lower Extremity Light Touch: Normal Motor strength exam: RUE: 5, LUE: 5, RLE: 5, LLE: 5 Eye Response: (4) open spontaneously Motor Response: (6) obeys commands Verbal Response: (5) oriented Psychiatric exam: Present: normal affect, normal mood Skin exam: Absent: rash Course Vital Signs 07/19/16 07/19/16 07/19/16 16:52 18:22 18:35 Temperature 97.7 F 98.4 F Pulse Rate 51 L 45 L 45 L Respiratory 20 18 18 Rate Blood Pressure 237/101 205/95 168/81 O2 Sat by Pulse 98 100 100 Oximetry 07/19/16 19:19 Temperature 98.4 F Pulse Rate 40 L Respiratory 18 Rate Blood Pressure 172/79 O2 Sat by Pulse 99 Oximetry EKG Findings - EKG Comments: EKG Findings:: Sinus bradycardia 43. NC 182. QRS 78. QT 492. QTC 4:15. Normal axis. Normal QRS. Normal ST-T. Medical Decision Making - Medical Decision Making Patient reexamined and symptom-free. Blood pressure is improved. Previous admission heart rates reviewed. Patient has had several low heart rate on previous admission including 44 and 45. Patient and family are comfortable with discharge. They do have an appointment tomorrow. Patient and family were updated on the low heart rate and need to discuss this with her doctor. Also advised to consider cardiology evaluation for this. Also warned of signs to look for as far as becoming symptomatic. Patient denies any exertional dyspnea or lightheadedness or near-syncope. - Lab Data Result diagrams: 07/19/16 18:00 07/19/16 18:00 Lab Results 07/19/16 07/19/16 Range/Units 18:00 18:00 WBC 5.8 (3.8-10.6) k/uL RBC 4.03 (3.80-5.40) m/uL Hgb 12.0 (11.4-16.0) gm/dL Hct 36.7 (34.0-46.0) % MCV 91.2 (80.0-100.0) fL MCH 29.7 (25.0-35.0) pg MCHC 32.5 (31.0-37.0) g/dL RDW 13.6 (11.5-15.5) % Plt Count 260 (150-450) k/uL Neutrophils % 61 % Lymphocytes % 23 % Monocytes % 8 % Eosinophils % 4 % Basophils % 1 % Neutrophils # 3.5 (1.3-7.7) k/uL Lymphocytes # 1.4 (1.0-4.8) k/uL Monocytes # 0.5 (0-1.0) k/uL Eosinophils # 0.2 (0-0.7) k/uL Basophils # 0.0 (0-0.2) k/uL Sodium 140 (137-145) mmol/L Potassium 3.7 (3.5-5.1) mmol/L Chloride 107 (98-107) mmol/L Carbon Dioxide 23 (22-30) mmol/L Anion Gap 10 mmol/L BUN 11 (7-17) mg/dL Creatinine 1.55 H (0.52-1.04) mg/dL Est GFR (MDRD) Af Amer 39 (>60 ml/min/1.73 sqM) Est GFR (MDRD) Non-Af 32 (>60 ml/min/1.73 sqM) Glucose 88 (74-99) mg/dL Calcium 9.4 (8.4-10.2) mg/dL Total Bilirubin 0.6 (0.2-1.3) mg/dL AST 21 (14-36) U/L ALT 22 (9-52) U/L Alkaline Phosphatase 52 (38-126) U/L Total Protein 6.5 (6.3-8.2) g/dL Albumin 3.9 (3.5-5.0) g/dL - Radiology Data Radiology results: image reviewed (Chest x-ray shows no acute process) Disposition Clinical Impression: Hypertension Disposition: HOME SELF-CARE Condition: Stable Instructions: Hypertension (ED) Additional Instructions: Please follow-up with primary care physician tomorrow as planned. You may take 1 extra dose of your hydralazine if needed. Return for uncontrolled blood pressure, feeling like your going to pass out, weakness, problems with exertion or shortness of breath on exertion, worsening symptoms or other concerns. Referrals: Steven Turner MD [Primary Care Provider] - 1-2 days Time of Disposition: 19:27
[2016-07-19 18:22] LABS: Basophils % (A) 1 %; Eosinophils # (A) 0.2 k/uL (0-0.7); Eosinophils % (A) 4 %; HCT 36.7 % (34.0-46.0); HDW 2.32; Luc # (Auto) 0.18; Luc % (Auto) 3; Lymphocytes # (A) 1.4 k/uL (1.0-4.8); Lymphocytes % (A) 23 %; MCH 29.7 pg (25.0-35.0); MCHC 32.5 g/dL (31.0-37.0); MCV 91.2 fL (80.0-100.0); Mean Platelet Volume 6.5; Monocytes # (A) 0.5 k/uL (0-1.0); Monocytes % (A) 8 %; Neutrophils # (A) 3.5 k/uL (1.3-7.7); Neutrophils % (A) 61 %; RBC 4.03 m/uL (3.80-5.40); RDW 13.6 % (11.5-15.5); WBC 5.8 k/uL (3.8-10.6)
[2016-07-19 18:30] LABS: Calcium 9.4 mg/dL (8.4-10.2); Potassium 3.7 mmol/L (3.5-5.1); Total Bilirubin 0.6 mg/dL (0.2-1.3); Total Protein 6.5 g/dL (6.3-8.2)
[2016-07-19 18:42] VITALS: RESP 18
--- NOTE | 2016-07-19 18:53 | XR ---
EXAMINATION TYPE: XR chest 2V DATE OF EXAM: 07/19/2016 6:49 PM COMPARISON: 07/09/2016 HISTORY: Shortness of breath TECHNIQUE: Frontal and lateral views of the chest are obtained. FINDINGS: Scattered senescent parenchymal changes noted. Hyperinflation compatible with COPD. No evidence for infiltrate. No evidence for atelectasis. Heart size is stable. Mediastinal structures are stable and grossly unremarkable. No evidence for hilar prominence. Degenerative changes dorsal spine. IMPRESSION: 1. No evidence for acute pulmonary disease.
[2016-07-19] MEDS ORDERED: hydrALAZINE HCL 20 MG/ML 1 ML VIAL IVP STA (20:07)
[2016-07-19 20:51] VITALS: BP 150/84; PULSE 46; TEMP 98.8
== END 2016-07-19 20:40 | disposition home or self-care (01) ==
LOC: EC 16:49
DX: I10 Essential (primary) hypertension (principal); F03.90 Unspecified dementia, unspecified severity, without behavioral disturbance, psychotic disturbance, mood disturbance, and anxiety; M19.041 Primary osteoarthritis, right hand; M19.042 Primary osteoarthritis, left hand; Z79.82 Long term (current) use of aspirin; Z79.899 Other long term (current) drug therapy; Z91.048 Other nonmedicinal substance allergy status
CPT/HCPCS: 36415; 93005; 80053; 85025; 71020; 99284; 96374; 96375 ×2; J2270; J0360